=== PATIENT | male | born 1955 | race Caucasian/White ===

== ENCOUNTER → 2016-07-06 | Outpatient (CLI) | payer BC ==
[~2016-07-06] MED LIST: AUGMENTIN PO; DESYREL50 MG PO; FLEXERIL10 M1 PO; FLEXERIL10 MG; IBUPROFEN PO; KLONOPIN1 MG PO; MEDROL PO; METOPROLOL TAR25 MG PO; NAMENDA10 MG; NEXIUM PO; NO MEDICATIONS; PERCOCET 5-3251 TAB PO; VICODIN 5/1 TAB 5/50 PO
--- NOTE | ~2016-07-06 | MR17 ---
[facility] A Service of [facility] RADIOLOGY TEXT RESULTS PATIENT: YVES HDEZ LOCATION: [facility] : 59 UNIT #: [id number] AGE: [address]: MYRNA HARRIS MD SEX: M ORDER DR: [id number] [place] [id number] O MR#: [id number] Acc #: [id number] NAME: YVES HDEZ : 1955 SEX: M STUDY DATE/TIME: 07/06/2016 14:09 UNIT: [facility] ROOM: STUDY DESCRIPTION: MR Brain WWo Contrast Attending Physician: Kaitlyn Harris M.D. Referring Physician: Kaitlyn Harris M.D. Ordering Physician: Kaitlyn Harris M.D. Primary Care Physician: Kaitlyn Harris M.D. MRI CENTER REPORT This report is preliminary unless electronic signature is present. EXAM MRI of the brain with and without. HISTORY Patient having spells lasting 15-30 minutes with bilateral visual loss which comes and goes and unable to think clearly, confusion since December 2015. No history of cancer, trauma or surgery. COMMENT MRI of the brain was performed prior to and following intravenous administration of 20 mL of MultiHance. 1.5T wide-bore imaging technique utilized. COMPARISON No prior imaging of the brain. FINDINGS There is no evidence for a recent ischemic insult on the diffusion series. There is no Chiari-I malformation. There is disproportion enlargement of ventricles when compared to sulci. Given complaint of confusion, please correlate for clinical evidence of normal-pressure hydrocephalus. There is no extraaxial fluid collection. The basilar cisterns are patent. There is no MRI evidence for intracranial hemorrhage. The major intracranial flow voids are maintained. 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 It is about 1.2 cm in maximum diameter. Please correlate for any clinical symptoms referable to this region. Only mild periventricular white matter signal abnormality is seen nonspecific and within the range of expected for age group. Following contrast administration, there is no pathologic intracranial enhancement. No intracranial mass lesion or mass effect. IMPRESSION 1. Disproportionate enlargement of ventricles when compared to sulci. [facility] A Service of [facility] RADIOLOGY TEXT RESULTS PATIENT: YVES HDEZ LOCATION: [facility] : 59 UNIT #: [id number] AGE: [address]: MYRNA HARRSI MD SEX: M ORDER DR: Relatively mild white matter signal abnormality. Findings raise concern for the possibility of normal-pressure hydrocephalus and this is a possible etiology of the patient's complaints of confusion. Please evaluate further clinically. 2. 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 Please correlate further clinically. Dictated by... Cha Romero M.D. THIS IS AN ELECTRONICALLY VERIFIED REPORT Cha Romero M.D. at 07/08/2016 8:20 AM MAKENZIE/radha TD: 07/07/2016 19:10 JOB #: [id number] MRI CENTER REPORT Page 1 of 1
== END | disposition home or self-care (01) ==
LOC: SMRI 13:37
DX: R41.0 Disorientation, unspecified (principal); G93.0 Cerebral cysts; R93.0 Abnormal findings on diagnostic imaging of skull and head, not elsewhere classified
CPT/HCPCS: 70553; A9581

== ENCOUNTER → 2016-08-18 | Outpatient (CLI) | payer BC ==
--- NOTE | ~2016-08-18 | MR31 ---
[facility] A Service of [facility] RADIOLOGY TEXT RESULTS PATIENT: YVES HDEZ LOCATION: [facility] : 59 UNIT #: [id number] AGE: [address]: CECILIA COOLEY SEX: M ORDER DR: [id number] [place] [id number] O MR#: [id number] Acc #: [id number] NAME: YVES HDEZ : 1955 SEX: M STUDY DATE/TIME: 08/18/2016 17:11 UNIT: [facility] ROOM: STUDY DESCRIPTION: MR Cervical WWo Contrast Attending Physician: Cecilia Cooley M.D. Referring Physician: Cecilia Cooley M.D. Ordering Physician: Cecilia Cooley M.D. Primary Care Physician: Kaitlyn Arenas M.D. MRI CENTER REPORT This report is preliminary unless electronic signature is present. EXAM Cervical spine MR with and without contrast, 08/18/2016. PROCEDURE Routine cervical spine MRI with and without contrast. COMPARISON Prior MRI cervical spine, 04/16/2010. CLINICAL HISTORY Increasing neck pain now radiating to the left arm, symptoms for about 8 months FINDINGS There has been prior anterior fusion at C5-6, but alignment is normal. There is discogenic change at 6-7, but bone marrow signal is otherwise normal. Cord signal is normal. The paraspinous soft tissues are unremarkable. At 2-3, the canal and left foramen are normal. The right foramen is minimally if at all narrowed. At 3-4, the canal is normal. There is minimal left and no right foraminal narrowing. At 4-5, there is mild canal stenosis without cord compression. There is minimal right and [id number] left foraminal narrowing. At 5-6, there is no canal stenosis but there may be mild bilateral foraminal narrowing. At 6-7, there is a disc and osteophyte complex with mild canal stenosis but no cord compression. There is moderate right and moderate to severe STS. [facility] A Service of [facility] RADIOLOGY TEXT RESULTS PATIENT: YVES HDEZ LOCATION: [facility] : 59 UNIT #: [id number] AGE: [address]: CECILIA COOLEY SEX: M ORDER DR: left foraminal stenosis. At 7-2, the canal and foramina are normal. Postcontrast images show no abnormal enhancement. 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 There has been surgical fusion at 5-6 and there is appears to be solid osseous union across the disc. See above for level by level details regarding canal and foraminal narrowing. Dictated by... Segundo Finch M.D. THIS IS AN ELECTRONICALLY VERIFIED REPORT Segundo Finch M.D. at 08/19/2016 2:13 PM NORMA/jeb TD: 08/19/2016 11:31 JOB #: [id number] MRI CENTER REPORT Page 1 of 1
== END | disposition home or self-care (01) ==
LOC: SMRI 16:45
DX: M50.10 Cervical disc disorder with radiculopathy, unspecified cervical region (principal); M48.02 Spinal stenosis, cervical region; M99.81 Other biomechanical lesions of cervical region; Z98.1 Arthrodesis status
CPT/HCPCS: 72156; A9581